=== PATIENT | female | born 1960 ===

== ENCOUNTER 2018-12-27 16:31 | Outpatient (REF) | payer SELFPAY ==
--- NOTE | 2018-12-27 | PAPFT_PTH ---
PATIENT: AYLIN GORDON LOC: [facility] U#:[id number] AGE/SX: 58/F ROOM: RE12/27/[address]: Gabby Bates : 1960 BED: DIS: 12/27/2018 SPEC #: [id number] RECD: 12/28/18 12:55 STATUS: MAXWELL MCDONOUGH #: [id number] JEO: 12/27/18 00:[address]: Gabby Bates DEPT: [facility] Cytology RECD BY: Kamla Urena Tissues: 1 - CX/ENDOCX FOR PAP SMEARS Procedures: PAP THIN PREP/[facility] Screening HPV DNA PROBE Comments: [id number]
[2018-12-27 20:01] LABS: TSH 31.36 uIU/mL (0.358-3.74)
== END 2018-12-27 16:51 ==
LOC: NCHCN 16:31
PROVIDERS: PCP Nurse Practitioner Family; Visit Provider Nurse Practitioner Family
DX: E03.9 Hypothyroidism, unspecified (principal); Z12.4 Encounter for screening for malignant neoplasm of cervix; Z11.51 Encounter for screening for human papillomavirus (HPV)
CPT/HCPCS: 88142; 84443; 87624

== ENCOUNTER 2020-08-22 12:02 | Outpatient (REF) | payer MEDICAID, SELFPAY ==
[2020-08-22 21:10] LABS: TSH 2.04 uIU/mL (0.36-3.74)
[2020-08-24 15:52] LABS: Syphilis Total Ab w/Reflex Nonreactive (Nonreactive)
[2020-08-31 16:20] LABS: HIV-1/2 Ag & Ab Screen Negative (Negative)
== END 2020-08-22 12:22 ==
LOC: NCHCN 12:02
PROVIDERS: PCP Nurse Practitioner Family; Visit Provider Nurse Practitioner Family
DX: N76.0 Acute vaginitis (principal); E03.9 Hypothyroidism, unspecified; Z11.3 Encounter for screening for infections with a predominantly sexual mode of transmission
CPT/HCPCS: 87389; 84443; 86780; 87480; 87510; 87660